=== PATIENT | female | born 1995 | race Caucasian/White ===

== ENCOUNTER 2018-01-30 00:43 | Observation (INO) | payer BC, SELFPAY ==
[2018-01-30] MEDS ORDERED: Gabapentin 300 MG CAP PO SCH (01:15)
[2018-01-30] MEDS ORDERED: Metoclopramide HCl 10 MG/2 ML VIAL ONE (01:23)
[2018-01-30] MEDS ORDERED: Ondansetron HCl/PF 4 MG/2 ML Vial IVP PRN (07:24)
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
[2018-01-30 07:42] VITALS: BMI 39.2
[2018-01-30 07:55] LABS: #Eosinphils 0.1 thou/uL (0.0-0.7); #Lymphocytes 2.7 thou/uL (1.20-3.40); #Monocytes 0.8 thou/uL (0.11-0.59); #Neutrophils 6.1 thou/uL (1.40-6.50); %Basophils 0.1 % (0.0-1.0); %Lymphocytes 28.1 % (21.0-51.0); %Monocytes 7.9 % (0.0-10.0); %Neutrophils 62.8 % (42.0-75.0); Hemoglobin 13.1 g/dL (12.0-16.0); Mean Corpuscular HGB CONC 34.2 g/dL (32.0-36.0); Mean Corpuscular Hemoglobin 29.3 pg (27.0-31.0); Mean Corpuscular Volume 85.6 fl (81.0-99.0); Mean Platelet Volume 7.2 fL (7.4-10.4); Platelet Count 300 thou/uL (130-400); RBC Distribution Width 12.8 % (11.5-14.5); Red Blood Cell (RBC) Count 4.48 mill/uL (4.20-5.40); White Blood Cell (WBC) Count 9.6 thou/uL (4.8-10.8)
[2018-01-30 08:14] LABS: Anion Gap 14 mmol/L (10-20); BUN (Urea Nitrogen) 8 mg/dL (7.0-18.7); CRP (Inflammatory) 1.04 mg/dL (= or < 0.5); Calc. Creatinine Clearance 240 mL/min (70-130); Calcium 9.7 mg/dL (7.8-10.44); Carbon Dioxide 22 mmol/L (22-29); Chloride 106 mmol/L (98-107); Estimated GFR-MDRD Greater than 90; Glucose 100 mg/dL (70-105); Potassium 3.8 mmol/L (3.5-5.1); Sodium 138 mmol/L (136-145)
--- NOTE | 2018-01-30 10:15 | MRI ---
PRELIMINARY REPORT/[facility]/EMERGENTY AFTER-HOURS PROCEDURE MR Lumbar Spine Without and With Intravenous Contrast CLINICAL HISTORY: 22 years old, female; Pain; Low back pain; Prior surgery; Surgery date: 1-6 months; Patient HX: No re cent injury, HX of surgery, bilateral leg numbness, back pain TECHNIQUE: Magnetic resonance images of the lumbar spine without and with intravenous contrast in multiple plane s. COMPARISON: No relevant prior studies available. FINDINGS: Vertebrae: Prior posterior spinal fusion at T12-L2 with chronic burst fracture at L1 noted. There is associated posterior displacement of the nerve roots of the cauda equina. Prior laminectomies noted a t L1-L2 No acute fracture. Spinal cord: Normal signal. No abnormal enhancement. Soft tissues: Unremarkable. DISCS/SPINAL CANAL/NEURAL FORAMINA: L1-L2: Unremarkable. No significant disc disease. No stenosis. L2-L3: Unremarkable. No significant disc disease. No stenosis. L3-L4: Unremarkable. No significant disc disease. No stenosis. L4-L5: No significant central canal stenosis. Mild foraminal stenosis L5-S1: Unremarkable. No significant disc disease. No stenosis. IMPRESSION: Postsurgical changes at T12-L2 as described with chronic burst fracture at L1. Posterior displacement of the cauda equina nerve roots at the L1 level Otherwise, no significant central canal stenosis. Mild foraminal stenosis at L4-L5. Thank you for allowing us to participate in the care of your patient. Dictated and Authenticated by: Seb Lorenzana MD 01/30/2018 6:40 AM Central Time ([place] & [place]) FINAL REPORT: MRI OF THE LUMBAR SPINE WITH AND WITHOUT CONTRAST: Date: 01-30-18 Comparison: None. History: Paresthesia. Bilateral leg numbness with back pain. FINDINGS: I agree with the preliminary [facility] report. There is a L1 burst fracture which has been treated with bilateral T12 and L2 pedicle screws with oni tically oriented interlocking rods. This fracture was seen on CT examination of the lumbar spine perf formerly [facility], [id number]–1983 09-26-17 and post-operative hardware was present on radiographs of the lumbar spine performed 09-22. No acute fracture is seen. Osseous retropulsion at the L1 level causes effacement of the ventral thec al sac and abuts nerve roots of the cauda equina. There is mild associated central canal stenosis sec ondary to the presence of bilateral laminectomy change. The conus medullaris terminates at the T12 level. T12-L1: No significant central canal or neural foraminal stenosis. L1-2: No significant central canal or neural foraminal stenosis. L2-3: No central canal or neural foraminal stenosis. L3-4: No central canal or neural foraminal stenosis. L4-5: No central canal or neural foraminal stenosis. L5-S1: No central canal or neural foraminal stenosis. The post contrast imaging demonstrates no abnormal enhancement. The imaged retroperitoneal structures appear within normal limits. IMPRESSION: Chronic L1 burst fracture status post laminectomy and posterior fusion with a mild degree of central canal stenosis secondary to osseous retropulsion at the L1 level. No severe central canal or neural f oraminal stenosis noted within the lumbar spine. QA POS: KAUR
[2018-01-30] MEDS: Sodium Chloride 0.9% 1,000 ML IV SCH ×2 (10:44→21:08)
[2018-01-30] MEDS ORDERED: Gadobenate Dimeglumine 529 MG/1 ML (20ML VIAL) ONE (11:28)
--- NOTE | 2018-01-30 12:01 | MRI ---
MRI THORACIC SPINE WITHOUT CONTRAST: 01/30/2018 HISTORY: Lower extremity weakness. History of prior L1 fracture, status post surgical correction. TECHNIQUE: Multiplanar, multisequence MR imaging of the thoracic spine obtained without contrast media. FINDINGS: On localizer imaging, there is a focus of T2 hyperintensity, located intracranially, in the region of the pineal gland, measuring 9 mm. This may represent a lipoma. This could be best assessed via CT of the head. There is posterior fusion hardware at the T12 level, with associated streak artifact. The sagittal S TIR imaging demonstrates no focal area of osseous marrow edema. There is no anterolisthesis or retro listhesis seen within the thoracic spine. There is no central canal or neural foraminal stenosis from the C7-T1 level through the T9-T10 level. At T10-T11, there is disk space narrowing, disk desiccation, and mild disk bulge, with partial efface ment of the ventral thecal sac and mild central canal stenosis. There is also bilateral facet hypert rophy with mild neural foraminal stenosis on the right. At the T11-T12 level, there is disk space na rrowing, disk desiccation, and mild disk bulge, with partial effacement of the ventral thecal sac and no significant central canal stenosis or neural foraminal stenosis. The T12-L1 level is not well se en on this exam. No focal area of abnormal signal intensity is identified within the thoracic cord. Axial T1 weighted imaging is limited on the basis of motion artifact. IMPRESSION: 1. Mild multilevel lower thoracic spine degenerative change. No severe central canal or neural fora shauna stenosis. There is no abnormal signal intensity identified within the thoracic cord. 2. Focus of T1 hyperintensity, intracranially, as described above. CODE T POS: KAUR
--- NOTE | 2018-01-30 12:17 | CT ---
NONCONTRAST CT LUMBAR SPINE: 01/30/2018 HISTORY: Patient with loss of feeling in lower extremities last night, which lasted about one hour. History o f prior lumbar fusion and lumbar fracture. COMPARISON: MRI lumbar spine on 01/30/2018, as well as CT lumbar spine on 09/26/2017. FINDINGS: There have been interval postoperative changes, related to posterior fusion, with bipedicular screws in the T12 and L2 vertebral bodies, with interlocking rods transfixing the L1 burst fracture. Retrop ulsion of fracture fragments into the central spinal canal are again seen and are stable in position compared to prior study on 09/26/2017. There has been interval laminectomy at this level. The fract ure margins are more ill defined and slightly sclerotic when compared to prior CT exam, although frac ture lucencies do persist. There is no perihardware lucency seen. The tip of the right 12 pedicular screw extends into the intervertebral disk. The wedge shaped compression fracture of the T11 and T12 vertebral bodies is again seen, and the degr ee of height loss anteriorly is overall similar to the initial study on 09/26/2017. T11-T12: There is probably minimal disk bulge present at this level, which results in very slight ef facement of the ventral subarachnoid space. The neural foramina are patent. T12-L1: There is retropulsion of fracture fragments involving the posterior-superior L1 vertebral penny dy. A laminectomy defect is seen posteriorly but, due to the fracture fragment, there is mild narrow ing of the central spinal canal. The neural foramina do appear patent at this level. L1-L2: The central spinal canal and neural foramina are patent. Laminectomy defect is seen posterio rly at this level. L2-L3: There is no disk bulge or disk herniation. The central spinal canal and neural foramina are patent. L3-L4: There is no disk bulge or disk herniation. The central spinal canal and neural foramina are patent. L4-L5: There is no disk bulge or disk herniation. The central spinal canal and neural foramina are patent. L5-S1: There is no significant disk bulge or disk herniation. The central spinal canal and neural f oramina are patent. IMPRESSION: 1. Remote L1 burst fracture with laminectomy as well as posterior fusion at this level. There is mi ld narrowing of the central spinal canal at this level. 2. No perihardware lucency is seen to suggest hardware complication. 3. Stable mild wedge shaped compression fractures of the T11 and T12 vertebral bodies. 4. No severe central canal or neural foraminal narrowing is present within the lumbar spine. 5. Residual contrast within the renal collecting systems from prior post contrast MRI examination. 6. Post cholecystectomy changes. POS: KAUR
[2018-01-30] MEDS: Dexamethasone 4 mg/ml Vial SLOW IVP SCH ×2 (14:52→21:08)
[2018-01-30 15:22] LABS: Pregnancy Test - Urine (BHCG) Negative (Negative); Pregu Control Background? CLEAR/WHITE (CLR/WHITE); Pregu Control Bar Appear? YES (CONTROL BAR); Specific Gravity 1.027 (1.002-1.036)
[2018-01-30] MEDS: Pantoprazole 40 MG VIAL IVP SCH (21:06)
--- NOTE | 2018-01-30 23:01 | PRG ---
NEUROSURGERY PROGRESS NOTE DATE OF SERVICE: 01/30/2018 I saw Paco in her hospital room this afternoon. Her thoracic MRI scan shows a bit of stenosis at T 10-T11, 2 levels up from her fracture surgery, and I came to talk to her about the results. However, by the time I arrived, her catheter had been taken out. She was ambulatory in the asencio. She was co ntrolling her bowel and bladder. The tingling in her legs had resolved. She is feeling as close to normal as shehas in the past few weeks. Her CBC showed a normal white blood cell count. Her sed rate is entirely normal. I thought Ms. Antonio has any infection from her surgery and I think she has inflammatory issue around the nerve roots or spinal cord in the lower thoracic, upper lumbar area and steroids are making a si gnificant improvement and need to put her through another operation. Now, she improved tremendously. We will keep her out of work and on a slow steroid taper. She will keep her previously scheduled f ollowup to last week in January with Dr. Huff in between now and then if she has deterioration, she has the office number. We will watch her carefully overnight and she continues to do well tomorrow, she could be dismissed as early as tomorrow afternoon.
[2018-01-31] MEDS: Sodium Chloride 0.9% 1,000 ML IV SCH (01:19)
[2018-01-31] MEDS: Dexamethasone 4 mg/ml Vial SLOW IVP SCH (05:49)
--- NOTE | 2018-01-31 07:10 | PRG ---
DATE OF SERVICE: 01/31/2018 I saw Ms. Antonio this morning and yesterday's Decadron helped significantly. Yesterday evening she w as already making significant progress. Overnight, she feels even better. The tingling has receded. She feels like her strength is back. She was able to stand and walk and go to the bathroom overnig ht. Since yesterday there are no fevers recorded. Her vital signs are stable. On her neurological exami nation she has better joint position sense in the toes even than yesterday. She answers more quickly . She has good strength throughout including at least 4+ strength in all muscle groups in iliopsoas and quadriceps, anterior tip and EHL, gastroc and toe flexors. I do not find any sensory level. My plan today is for Ms. Antonio to prove that she is safe for activities of daily living and be disch arged home. We will put her on a gradual taper of steroids and a proton pump inhibitor for the next 2 weeks. Should her symptoms return she has our office number to contact. We will make sure that he r axial back pain, which she has had for some time, is under reasonable control for discharge as well .
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
[2018-01-31] MEDS: Pantoprazole 40 MG VIAL IVP SCH (08:46)
[2018-01-31] MEDS ORDERED: Acetaminophen/Codeine 30-300mg Tablet PO PRN (09:00)
[2018-01-31] MEDS: Gabapentin 300 MG CAP PO SCH ×2 (11:45→16:59)
[2018-01-31] MEDS ORDERED: Acetaminophen/Codeine 30-300mg Tablet PO SCH (13:00)
[2018-01-31] MEDS ORDERED: Dexamethasone 4 MG TAB PO SCH (14:00)
[2018-01-31 15:54] VITALS: BP 132/74; TEMP 99.2
== END 2018-01-31 17:12 | disposition home or self-care (01) ==
LOC: ERS 00:43 → 2SE 01:24
PROVIDERS: ADMIT Neurological Surgery; ATTEND Neurological Surgery
DX: R20.2 Paresthesia of skin (principal); M48.04 Spinal stenosis, thoracic region; F32.9 Major depressive disorder, single episode, unspecified; F41.9 Anxiety disorder, unspecified; Z87.891 Personal history of nicotine dependence; Z79.899 Other long term (current) drug therapy; Z98.1 Arthrodesis status
CPT/HCPCS: 36415; 72131; 72146; 72158; 80048; 81025; 85025; 85652; 86140; 87040; 96361; 96374; 96375; 96376; A4216; A9579; C9113; G0378; J1100; J2270; J2765; J8540